=== PATIENT | female | born 1970 | race Caucasian/White ===

== ENCOUNTER 2018-04-22 12:43 | Emergency (ER) | payer OTHER ==
[~2018-04-22] VITALS: Ht 147.3 cm; Wt 51.7 kg
[~2018-04-22 12:43] MED LIST: B-1100 MG PO; CHLORDIAZEPOXID25 MG PO; COMBIVENT RESPIM4 GM INH; MACROBID 100 M100 MG PO
== END 2018-04-22 14:20 | disposition home or self-care (01) ==
LOC: ED 12:43
DX: S60.221A Contusion of right hand, initial encounter (principal); S80.02XA Contusion of left knee, initial encounter; S80.01XA Contusion of right knee, initial encounter; J45.909 Unspecified asthma, uncomplicated; F17.200 Nicotine dependence, unspecified, uncomplicated; Z90.710 Acquired absence of both cervix and uterus; Z79.899 Other long term (current) drug therapy; W01.10XA Fall on same level from slipping, tripping and stumbling with subsequent striking against unspecified object, initial encounter
CPT/HCPCS: 73130; 73560; 99283

== ENCOUNTER 2021-04-20 20:02 | Emergency (ER) | payer OTHER ==
[~2021-04-20] VITALS: Ht 147.3 cm; Wt 46.3 kg
[2021-04-20] MEDS ORDERED: ABILIFY10 MG PO (20:17)
[2021-04-20] MEDS ORDERED: FLOVENT DISKU100 MCG INH (20:17)
[2021-04-20] MEDS ORDERED: ALVESCO6.1 G1 INH (20:17)
[2021-04-20] MEDS ORDERED: HYDROXYZINE PAM50 MG PO (20:18)
[2021-04-20] MEDS ORDERED: EC-NAPROSYN375 MG PO (20:18)
[2021-04-20] MEDS ORDERED: SINGULAIR10 MG PO (20:18)
[2021-04-20] MEDS ORDERED: LEVOTHYROXINE88 MC1 PO (20:19)
--- NOTE | 2021-04-21 09:36 | EKG ---
[facility] [address] [facility] [address] [facility] [place] [id number] Signed Sinus rhythm with marked sinus arrhythmia Right atrial enlargement Borderline ECG No previous ECGs available Confirmed by ESTEFANI HEWITT MD ([id number] on 04/21/2021 9:35:47 AM Electronically Signed By: ESTEFANI HEWITT MD 04/21/21 0936 PATIENT NAME: VINCE BONNER BO Electrocardiogram DATE OF : 70 PHYSICIAN: ESTEFANI HEWITT MD REPORT #: [id number] REPORT IS CONFIDENTIAL AND NOT TO BE RELEASED WITHOUT AUTHORIZATION
== END 2021-04-21 00:01 | disposition home or self-care (01) ==
LOC: ED 20:02
DX: G25.9 Extrapyramidal and movement disorder, unspecified (principal); F31.9 Bipolar disorder, unspecified; J45.909 Unspecified asthma, uncomplicated; E03.9 Hypothyroidism, unspecified; Z87.891 Personal history of nicotine dependence; Z88.2 Allergy status to sulfonamides; Z88.5 Allergy status to narcotic agent; Z91.018 Allergy to other foods; Z79.899 Other long term (current) drug therapy
CPT/HCPCS: 36415; 71045; 80053; 83735; 84484; 85025; 93005; 93010; 99285-25; Q0163